=== PATIENT | female | born 1985 | race Caucasian/White ===

== ENCOUNTER 2018-05-18 15:55 | Emergency (ER) | payer BC, SELFPAY ==
[2018-05-18 16:05] VITALS: BP 113/67; PULSE 77; RESP 18; TEMP 36.5; O2SAT 100
--- NOTE | 2018-05-18 16:20 | ED_ITS ---
HPI - Chest Pain <NITHIN Nagel - Last Filed: 05/18/18 22:18> General Chief Complaint: Chest Pain Stated Complaint: BIT OF COUGH CHEST PAIN TOWARDS BACK Time Seen by Provider: 05/18/18 16:19 Source: patient Mode of arrival: ambulatory Limitations: no limitations History of Present Illness HPI narrative: 32-year-old healthy female that is an everyday smoker. here for complaint of pain to her upper back that started yesterday. States the pain radiates around age into anterior chest wall. Denies any trauma to the area. She denies any shortness of breath. No nausea vomiting. she denies any stresses relievers of the discomfort. She does state that she has had a cough as well. No fevers no chills. She is ambulatory into the emergency room. No other concerns or complaints. she denies any control use MD complaint: chest pain Review of Systems <NITHIN Nagel - Last Filed: 05/18/18 22:18> Review of Systems All systems reviewed & are unremarkable except as noted in HPI and below Constitutional Denies chills, Denies fever(s), Denies lethargy and Denies weakness Eyes Denies change in vision, Denies eye discharge, Denies irritation and Denies loss of vision ENT Ears, Nose, Mouth, and Throat: Denies change in voice, Denies neck pain, Denies sore throat and Denies throat swelling Cardiovascular Reports chest pain, Denies irregular heart rhythm, Denies lightheadedness, Denies palpitations and Denies orthopnea Respiratory Reports cough and Denies wheezing Gastrointestinal Gastrointestinal: Denies abdominal pain, Denies change in bowel habits, Denies diarrhea, Denies nausea and Denies vomiting Genitourinary Denies hematuria, Denies flank pain, Denies urinary incontinence and Denies urinary urgency Musculoskeletal Reports back pain and Denies neck pain Integumentary/Breasts Denies pruritus, Denies erythema, Denies rash and Denies wounds Neurologic Denies confusion, Denies loss of vision and Denies weakness Psychiatric Denies anxiety, Denies confusion, Denies depression, Denies homicidal ideation and Denies suicidal ideation Endocrine Denies palpitations Hematologic/Lymphatic Denies easy bruising Allergic/Immunologic Denies urticaria, Denies throat swelling and Denies wheezing Exam <NITHIN Nagel - Last Filed: 05/18/18 22:18> Initial Vital Signs Initial Vital Signs: Vital Signs Temperature 97.7 F 05/18/18 16:05 Pulse Rate 77 05/18/18 16:05 Respiratory Rate 18 05/18/18 16:05 Blood Pressure 113/67 05/18/18 16:05 Pulse Oximetry 100 05/18/18 16:05 Const General: cooperative and well developed Nutritional Appearance: well nourished Orientation: alert, awake, oriented x3 and not confused HENPR Mouth: oral mucosae normal and oropharynx normal Eyes Conjunctivae: conjunctivae normal Sclera: sclerae normal Pupils: PERRL EOM: EOM intact bilaterally Neck Neck: normal visual inspection, trachea midline, No lymphadenopathy, No midline deformity and No JVD Lymphatic: No lymphedema Chest Chest: normal inspection of the chest Resp Effort & Inspection: normal respiratory effort, able to speak in complete sentences, no respiratory distress and no use of accessory muscles Auscultation: clear to auscultation bilaterally, no rales, no rhonchi and no wheezes Cardio Rate: regular rate Rhythm: regular rhythm Heart Sounds: no click, no gallops, no murmurs and no rubs Pulses: normal peripheral pulses GI Inspection: non-distended Palpation: soft, no hepatosplenomegaly, No guarding, No pulsatile mass and No tender Auscultation: normal bowel sounds Skin General: no rashes or lesions noted, No jaundice and No petechiae Neuro General: alert, oriented x3, gait normal and no focal motor deficits Speech: speech normal <Facundo Garcia DO - Last Filed: 05/21/18 05:56> Initial Vital Signs Initial Vital Signs: Vital Signs Temperature 97.7 F 05/18/18 16:05 Pulse Rate 77 05/18/18 16:05 Respiratory Rate 18 05/18/18 16:05 Blood Pressure 113/67 05/18/18 16:05 Pulse Oximetry 100 05/18/18 16:05 Scores <NITHIN Nagel - Last Filed: 05/18/18 22:18> PERC Score Age greater than or equal to 50 years: No Heart rate greater than or equal to 100 bpm: No Room Air O2 Sat less than 95%: No Unilateral leg swelling: No Recent trauma or surgery: No Hemoptysis: No Prior PE or DVT: No Hormone Use: No Total PERC Score: 0 Course <NITHIN Nagel - Last Filed: 05/18/18 22:18> Orders Ordered: Discontinued Medications Sodium Chloride (Normal Saline 0.9%) 1,000 mls @ 150 mls/hr IV CONT MITCHELL Last Admin: 05/18/18 17:18 Dose: 150 mls/hr Vital Signs - 8 hr 05/18/18 16:05 05/18/18 17:00 05/18/18 17:30 Temperature 97.7 F Pulse Rate 77 77 76 Respiratory Rate 18 17 15 Blood Pressure 113/67 Blood Pressure [Left Arm] 111/61 109/66 Pulse Oximetry 100 100 100 05/18/18 18:20 Temperature Pulse Rate 70 Respiratory Rate 14 Blood Pressure Blood Pressure [Left Arm] 108/73 Pulse Oximetry 100 <Facundo Garcia DO - Last Filed: 05/21/18 05:56> Orders Ordered: Discontinued Medications Sodium Chloride (Normal Saline 0.9%) 1,000 mls @ 150 mls/hr IV CONT MITCHELL Last Admin: 05/18/18 17:18 Dose: 150 mls/hr Vital Signs - 8 hr 05/18/18 16:05 05/18/18 17:00 05/18/18 17:30 Temperature 97.7 F Pulse Rate 77 77 76 Respiratory Rate 18 17 15 Blood Pressure 113/67 Blood Pressure [Left Arm] 111/61 109/66 Pulse Oximetry 100 100 100 05/18/18 18:20 Temperature Pulse Rate 70 Respiratory Rate 14 Blood Pressure Blood Pressure [Left Arm] 108/73 Pulse Oximetry 100 MDM - Chest Pain <NITHIN Nagel - Last Filed: 05/18/18 22:18> Lab Data Result diagrams: 05/18/18 16:45 05/18/18 16:45 Lab Results 05/18/18 05/18/18 Range/Units 16:45 16:45 WBC 5.7 (4.5-11.0) X10^3/uL RBC 4.46 (4.0-5.2) X10^6/uL Hgb 14.7 (12.0-16.0) g/dL Hct 42.2 (36-46) % MCV 94.7 (80-100) fL MCH 33.0 (26-34) PG MCHC 34.9 (30-36) % RDW 12.9 (11.6-14.8) % Plt Count 166 (150-400) X10^3/uL Neut % (Auto) 58.4 (50-75) % Lymph % (Auto) 29.7 (25-40) % [place] % (Auto) 9.5 (3-14) % Eos % (Auto) 1.6 L (2-4) % Baso % (Auto) 0.8 (0-2) % Neut # (Auto) 3400 (9116-6315) /uL Sodium 142 (137-145) mmol/L Potassium 4.1 (3.4-5.1) mmol/L Chloride 105 (98-107) mmol/L Carbon Dioxide 26 (22-32) mmol/L BUN 11 (7-17) mg/dL Creatinine 0.60 (0.52-1.04) mg/dL Estimated GFR > 60.0 (>60) mL/min BUN/Creatinine Ratio 18.3 (6-22) Glucose 91 (70-100) mg/dL Calcium 9.5 (8.4-10.2) mg/dL Total Bilirubin 1.2 (0.2-1.3) mg/dL AST 30 (14-36) IU/L ALT 27 (9-52) IU/L Alkaline Phosphatase 47 (38-126) U/L Total Creatine Kinase 47 (30-135) U/L Troponin I < 0.012 (0.01-0.034) ng/mL Total Protein 7.4 (6.3-8.2) g/dL Albumin 4.4 (3.5-5.0) g/dL Globulin 3.0 (1.7-4.1) g/dL Albumin/Globulin Ratio 1.5 (1.0-2.8) Lipase 154 (23-300) U/L Urine Dip Bedside Urine Glucose Negative Bedside Urine Bilirubin - Negative Bedside Urine Ketone - Negative Urine Specific Serafina 1.025 Bedside Urine Occult Blood - Negative Bedside Urine pH 6.0 Bedside Urine Protein - Negative Bedside Urine Urobilinogen 1+ 2mg Bedside Urine Nitrite - Negative Bedside Urine Leukocytes - Negative Esterase Imaging Data Chest x-ray: Radiologist's impression: [address] [id number] XRay Report Signed Patient: Leela Scott [facility]#: [id number] : 1985Acct:[id number] Age/Sex: 32 / FDate of Service: 05/18/18 Loc: ED Accession Number: [id number] Procedure: XR chest 1V Ordering Provider: Mele Peña PROCEDURE: XR CHEST 1V INDICATIONS: chest pain TECHNIQUE: One view of the chest was acquired. COMPARISON: None. FINDINGS: Surgical changes and devices: None. Lungs and pleura: No pleural effusions or pneumothorax. Lungs are clear. Mediastinum: Mediastinal contours appear normal. Heart size is normal. Bones and chest wall: No suspicious bony lesions. Overlying soft tissues appear unremarkable. IMPRESSION: Normal portable chest. Dictated by: Mehrdad Hall M.D. on 05/18/2018 at 17:01 Approved by: Mehrdad Hall M.D. on 05/18/2018 at 17:01 ECG Data Interpretation: EKG shows normal sinus rhythm with no ST elevation or depression. No ectopy. Ventricular rate is 75. Pr interval of 143. QRS duration of 81. QT of 335. MDM Narrative Medical decision making narrative: EKG shows sinus rhythm with no ST elevation or depression. No ectopy. chest x-ray was obtained was negative for any acute findings. CBC and Chem panel were obtained were negative. One set of cardiac enzymes were obtained were negative. Perc score was 0. with new onset of cough signs and symptoms presents as viral upper respiratory infection With chest wall pain. [id number] Tylenol Motrin as needed for any discomfort. Plenty of fluids and rest. Follow up with primary care provider next week. For any worsening symptoms return emergency room. <Facundo Garcia DO - Last Filed: 05/21/18 05:56> Lab Data Lab Results 05/18/18 05/18/18 Range/Units 16:45 16:45 WBC 5.7 (4.5-11.0) X10^3/uL RBC 4.46 (4.0-5.2) X10^6/uL Hgb 14.7 (12.0-16.0) g/dL Hct 42.2 (36-46) % MCV 94.7 (80-100) fL MCH 33.0 (26-34) PG MCHC 34.9 (30-36) % RDW 12.9 (11.6-14.8) % Plt Count 166 (150-400) X10^3/uL Neut % (Auto) 58.4 (50-75) % Lymph % (Auto) 29.7 (25-40) % [place] % (Auto) 9.5 (3-14) % Eos % (Auto) 1.6 L (2-4) % Baso % (Auto) 0.8 (0-2) % Neut # (Auto) 3400 (4204-5621) /uL Sodium 142 (137-145) mmol/L Potassium 4.1 (3.4-5.1) mmol/L Chloride 105 (98-107) mmol/L Carbon Dioxide 26 (22-32) mmol/L BUN 11 (7-17) mg/dL Creatinine 0.60 (0.52-1.04) mg/dL Estimated GFR > 60.0 (>60) mL/min BUN/Creatinine Ratio 18.3 (6-22) Glucose 91 (70-100) mg/dL Calcium 9.5 (8.4-10.2) mg/dL Total Bilirubin 1.2 (0.2-1.3) mg/dL AST 30 (14-36) IU/L ALT 27 (9-52) IU/L Alkaline Phosphatase 47 (38-126) U/L Total Creatine Kinase 47 (30-135) U/L Troponin I < 0.012 (0.01-0.034) ng/mL Total Protein 7.4 (6.3-8.2) g/dL Albumin 4.4 (3.5-5.0) g/dL Globulin 3.0 (1.7-4.1) g/dL Albumin/Globulin Ratio 1.5 (1.0-2.8) Lipase 154 (23-300) U/L Urine Dip Bedside Urine Glucose Negative Bedside Urine Bilirubin - Negative Bedside Urine Ketone - Negative Urine Specific Serafina 1.025 Bedside Urine Occult Blood - Negative Bedside Urine pH 6.0 Bedside Urine Protein - Negative Bedside Urine Urobilinogen 1+ 2mg Bedside Urine Nitrite - Negative Bedside Urine Leukocytes - Negative Esterase Discharge Plan Departure Patient Disposition: Home Clinical Impression: Upper respiratory infection, viral Discharge Date/Time: 05/18/18 18:26 Interventions: ED Discharge Assessment Last Done: 05/18/18 18:25 Instructions: DI for Viral Upper Respiratory Infection -- Adult Activity Restrictions/Additional Instructions: laboratory results today were unremarkable. Chest x-ray was negative for any acute findings. EKG was normal. Signs symptoms presents as viral upper respiratory infection with muscle skeletal pain to the chest wall. use over-the -counter Tylenol Motrin as needed for any discomfort. Plenty of fluids and rest. Follow up with primary care provider later this week. For any worsening symptoms return to the emergency room. Referrals: Biju Ordoñez MD [Primary Care Provider] - <Facundo Garcia DO - Last Filed: 05/21/18 05:56> Cosign ED Attending Cosmadyature Attestation: I was immediately available in the department for consultation. Documentation has been reviewed. I agree with assessment and plan.
--- NOTE | 2018-05-18 16:45 | DI.RAD.S_ITS ---
PROCEDURE: XR CHEST 1V INDICATIONS: chest pain TECHNIQUE: One view of the chest was acquired. COMPARISON: None. FINDINGS: Surgical changes and devices: None. Lungs and pleura: No pleural effusions or pneumothorax. Lungs are clear. Mediastinum: Mediastinal contours appear normal. Heart size is normal. Bones and chest wall: No suspicious bony lesions. Overlying soft tissues appear unremarkable. IMPRESSION: Normal portable chest. Dictated by: Mehrdad Hall M.D. on 05/18/2018 at 17:01 Approved by: Mehrdad Hall M.D. on 05/18/2018 at 17:01
[2018-05-18 17:00] VITALS: BP 111/61; PULSE 77; RESP 17; O2SAT 100
[2018-05-18 17:01] LABS: Add Manual Diff / Slide Review NO; Basophils Percent Auto 0.8 % (0-2); Eosinophils Percent Auto 1.6 % (2-4); Hematocrit 42.2 % (36-46); Hemoglobin 14.7 g/dL (12.0-16.0); Lymphocytes Percent Auto 29.7 % (25-40); Mean Corpuscular HGB Conc 34.9 % (30-36); Mean Corpuscular Volume 94.7 fL (80-100); Monocytes Percent Auto 9.5 % (3-14); Neutrophils Absolute Auto 3400 /uL (3000-5900); Neutrophils Percent Auto 58.4 % (50-75); Platelet Count 166 X10^3/uL (150-400); Red Blood Cell Count 4.46 X10^6/uL (4.0-5.2); Red Cell Distribution Width 12.9 % (11.6-14.8); White Blood Cell Count 5.7 X10^3/uL (4.5-11.0)
[2018-05-18 17:14] LABS: Alanine Aminotransferase 27 IU/L (9-52); Albumin 4.4 g/dL (3.5-5.0); Albumin Globulin Ratio 1.5 (1.0-2.8); Alkaline Phosphatase 47 U/L (38-126); Aspartate Aminotransferase 30 IU/L (14-36); BUN Creatinine Ratio 18.3 (6-22); Bilirubin Total 1.2 mg/dL (0.2-1.3); Blood Urea Nitrogen 11 mg/dL (7-17); Calcium 9.5 mg/dL (8.4-10.2); Carbon Dioxide 26 mmol/L (22-32); Chloride 105 mmol/L (98-107); Creatine Kinase 47 U/L (30-135); Estimated Glomerular Filt Rate > 60.0 mL/min (>60); Glucose 91 mg/dL (70-100); HEMOLYSIS < 15 (0-50); Lipase 154 U/L (23-300); Potassium 4.1 mmol/L (3.4-5.1); Sodium 142 mmol/L (137-145); Total Protein 7.4 g/dL (6.3-8.2)
[2018-05-18] MEDS: SODIUM CHLORIDE 0.9% 1,000 ML 150 ML IV (17:18)
[2018-05-18 17:28] LABS: Troponin I < 0.012 ng/mL (0.01-0.034)
[2018-05-18 17:30] VITALS: BP 109/66; PULSE 76; RESP 15; O2SAT 100
[2018-05-18 18:20] VITALS: BP 108/73; PULSE 70; RESP 14; O2SAT 100
--- NOTE | 2018-05-24 21:28 | PC.NURSE ---
Late Entry: Pt received Normal Saline on 05/18/18. Was started at 1645 and completed at 1825. Pt received a total of 225mls of Normal saline.
== END 2018-05-18 18:26 | disposition home or self-care (01) ==
PROVIDERS: Emergency Provider Nurse Practitioner Family; PCP Family Medicine
DX: J06.9 Acute upper respiratory infection, unspecified (principal); R07.89 Other chest pain
CPT/HCPCS: 36591; 71045; 80053; 81003; 82550; 82553; 83690; 84484; 85025; 93005; 96360; 96361; 99283; 99285